=== PATIENT | male | born 1945 | race Caucasian/White ===

== ENCOUNTER → 2020-08-06 | Day surgery (SDC) | payer MEDICARE ==
[~2020-08-06] MED LIST: AMIODARONE HCL200 MG PO; ATORVASTATIN CA10 MG PO; CYCLOPENTOLATE HCL 1% OPTH SOLN 2ML BTL ONE; FENTANYL CITRATE/PF 100MCG/2 ML INJ ONE; FUROSEMIDE40 MG PO; MIDODRINE HCL2.5 MG PO; NAMENDA5 MG PO; OR PHACO EYE KIT ONE; PREOP PHACO EYE KIT ONE; VITAMIN B-1100 M1 PO; VITAMIN B122500 MCG PO
[2020-08-06 13:25] VITALS: BP 159/96
== END | disposition home or self-care (01) ==
LOC: OR 10:07
PROVIDERS: ATTEND Ophthalmology
DX: H25.12 Age-related nuclear cataract, left eye (principal); I48.0 Paroxysmal atrial fibrillation; R06.09 Other forms of dyspnea; I25.10 Atherosclerotic heart disease of native coronary artery without angina pectoris; I25.2 Old myocardial infarction; I11.0 Hypertensive heart disease with heart failure; I50.22 Chronic systolic (congestive) heart failure; Z98.61 Coronary angioplasty status; I25.5 Ischemic cardiomyopathy; I95.89 Other hypotension; F03.90 Unspecified dementia, unspecified severity, without behavioral disturbance, psychotic disturbance, mood disturbance, and anxiety; Z01.812 Encounter for preprocedural laboratory examination; Z20.822 Contact with and (suspected) exposure to COVID-19; Z95.810 Presence of automatic (implantable) cardiac defibrillator; Z85.048 Personal history of other malignant neoplasm of rectum, rectosigmoid junction, and anus; Z92.21 Personal history of antineoplastic chemotherapy
CPT/HCPCS: 66984; J3010; U0002; V2632

== ENCOUNTER → 2020-08-27 | Day surgery (SDC) | payer MEDICARE ==
[~2020-08-27] MED LIST changes: -CYCLOPENTOLATE HCL 1% OPTH SOLN 2ML BTL ONE; +MIDAZOLAM HCL 2 MG/2 ML VIAL ONE; +POVIDONE IODINE 5% (OPTH) 30 ML BTL ONE
[2020-08-27 14:25] VITALS: BP 159/85
== END | disposition home or self-care (01) ==
LOC: OR 10:23
PROVIDERS: ATTEND Ophthalmology
DX: H25.11 Age-related nuclear cataract, right eye (principal); I25.10 Atherosclerotic heart disease of native coronary artery without angina pectoris; I25.5 Ischemic cardiomyopathy; I11.0 Hypertensive heart disease with heart failure; I50.22 Chronic systolic (congestive) heart failure; I48.0 Paroxysmal atrial fibrillation; I95.89 Other hypotension; I44.0 Atrioventricular block, first degree; M54.9 Dorsalgia, unspecified; F03.90 Unspecified dementia, unspecified severity, without behavioral disturbance, psychotic disturbance, mood disturbance, and anxiety; Z01.812 Encounter for preprocedural laboratory examination; Z20.822 Contact with and (suspected) exposure to COVID-19; Z95.810 Presence of automatic (implantable) cardiac defibrillator; Z85.048 Personal history of other malignant neoplasm of rectum, rectosigmoid junction, and anus
CPT/HCPCS: 66984; U0002; J2250; J3010; V2632